=== PATIENT | male | born 1955 | race Asian ===

== ENCOUNTER 2020-03-17 06:15 | Day surgery (SDC) | payer OTHER, SELFPAY ==
[~2020-03-17] VITALS: Ht 165.1 cm; Wt 59.0 kg
[2020-03-17] MEDS ORDERED: LIDOCAINE 2% 100 MG/5 ML UJET TP ONE ×2 (07:42→08:55)
[2020-03-17] MEDS ORDERED: MIDAZOLAM 2 MG/2 ML VIAL ONE (07:42)
[2020-03-17] MEDS ORDERED: fentaNYL citrate 0.05 MG/ML VIAL ONE (07:42)
[2020-03-17] MEDS ORDERED: fentaNYL citrate 0.05 MG/ML VIAL IVP ONE (08:55)
== END 2020-03-17 09:00 | disposition home or self-care (01) ==
LOC: MDS 06:15 → MFCC 06:16 → MDS 09:00
PROVIDERS: ATTEND Internal Medicine Gastroenterology
DX: R14.0 Abdominal distension (gaseous) (principal); Z86.010 Personal history of colon polyps; D12.2 Benign neoplasm of ascending colon; D12.3 Benign neoplasm of transverse colon; D12.4 Benign neoplasm of descending colon; D12.5 Benign neoplasm of sigmoid colon; E78.00 Pure hypercholesterolemia, unspecified; Z79.899 Other long term (current) drug therapy
CPT/HCPCS: 45385; J3010; U0003; J2250

== ENCOUNTER 2021-11-22 03:51 | Emergency (ER) | payer MEDICARE, OTHER ==
[~2021-11-22] VITALS: Ht 160 cm; Wt 61.2 kg
[2021-11-22 03:56] VITALS: BP 135/84
--- NOTE | 2021-11-22 04:00 | NUR ---
PT TO [facility]
--- NOTE | 2021-11-22 05:40 | NUR ---
Dr. Wang examining patient.
[2021-11-22] MEDS ORDERED: KETOROLAC 30 MG/ML VIAL IM ONE (05:50)
--- NOTE | 2021-11-22 05:54 | NUR ---
PT TAKEN TO BED 9
[2021-11-22] MEDS ORDERED: HYDROcodone/APAP 5/325 MG 1 TAB TAB PO ONE (06:20)
[2021-11-22] MEDS ORDERED: HYDROcodone/APAP 5/325 MG 1 TAB TAB ONE (06:21)
[2021-11-22] MEDS ORDERED: NAPR-1704 PO (06:25)
[2021-11-22] MEDS ORDERED: ACET-8386 PO (06:25)
[2021-11-22 07:16] VITALS: BP 128/70
[2021-11-22] MEDS ORDERED: LID5T TP (07:16)
[2021-11-22] MEDS ORDERED: CYCL-711 PO (07:16)
--- NOTE | 2021-11-22 07:17 | NUR ---
Patient discharged with v/s stable. Written and verbal after care instructions given and explained. Patient verbalized understanding. Ambulatory TO waiting room. All questions addressed prior to discharge. Advised to follow up with PMD.
== END 2021-11-22 07:17 | disposition home or self-care (01) ==
LOC: MED 03:51
DX: S39.012A Strain of muscle, fascia and tendon of lower back, initial encounter (principal); F17.210 Nicotine dependence, cigarettes, uncomplicated; Z79.899 Other long term (current) drug therapy; Z98.890 Other specified postprocedural states; X50.0XXA Overexertion from strenuous movement or load, initial encounter; Y93.89 Activity, other specified; Y92.89 Other specified places as the place of occurrence of the external cause; Y99.8 Other external cause status
CPT/HCPCS: 72100; 96372; 99283; J1885